=== PATIENT | female | born 1940 | race Caucasian/White ===

== ENCOUNTER 2017-12-22 09:52 | Outpatient (CLI) | payer MEDICARE ==
--- NOTE | 2017-12-22 15:01 | MRI Report ---
Reason: IMPINGEMENT SYNDROME OF RIGHT SHOULDER Procedure Date: 12/22/2017 Accession Number: [id number] / [id number] Procedure: MRI - Shoulder RT W/O CPT Code: FULL RESULT: EXAM: RIGHT SHOULDER MRI WITHOUT CONTRAST. EXAM DATE: 12/22/2017 11:20 AM. CLINICAL HISTORY: Impingement syndrome of right shoulder. COMPARISON: None. TECHNIQUE: Multiplanar, multisequence T1-weighted and fluid-sensitive sequences of the shoulder without contrast. Other: None. FINDINGS: Acromioclavicular Region: The acromion is type II. 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 The coracoacromial and coracoclavicular ligaments are intact. There is a small amount of bursal fluid present. Glenohumeral Region: No subluxation. Moderate-sized joint effusion. Several loose bodies also noted, at least 2 in the axillary pouch (series 701 image 17, at least 2 also seen in the biceps tendon sheath, series 501 image 8). Largest in the bicipital tendon sheath is about a centimeter. 2 smaller about 5 mm loose bodies in the axillary pouch. 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 The glenohumeral ligaments and joint capsule are unremarkable. Bone Marrow: No fracture, marrow edema or bone lesions. Labrum: Hamilton variant anterior labrum. No tears. Musculature/Rotator Cuff: Thickening and increased T2 signal at the subscapularis and supraspinatus. Infraspinatus and teres minor appear normal. No proximal muscular edema or fatty atrophy of the muscles of the rotator cuff. Biceps Tendon: The long head of the biceps tendon and biceps barry are intact. Moderate amount of fluid in the tendon sheath. Other: The subcutaneous tissues are unremarkable. IMPRESSION: 1. Type II unipartite undersurface osseous acromion shape. 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 Small amount of bursal fluid is present. 2. Moderate-sized joint effusion. Numerous loose bodies noted as described. Multifocal regions of grade II-III chondromalacia on both sides of the glenohumeral joint. 3. Marilu variant anterior labrum, no tears. 4. Significant tendinitis of the subscapularis and supraspinatus portions of the cuff without partial or full-thickness tears. 5. Moderate amount of fluid in the bicipital tendon sheath, tendon appears unremarkable. At least 2 loose bodies in the tendon sheath. [facility] MUSCULOSKELETAL RADIOLOGY SECTION
== END 2017-12-22 09:53 | disposition home or self-care (01) ==
LOC: DI 09:52
PROVIDERS: ATTEND Orthopaedic Surgery
DX: M19.011 Primary osteoarthritis, right shoulder (principal); M24.011 Loose body in right shoulder; M25.411 Effusion, right shoulder; M75.91 Shoulder lesion, unspecified, right shoulder; M67.813 Other specified disorders of tendon, right shoulder

== ENCOUNTER 2018-10-08 12:13 | Emergency (ER) | payer MEDICARE, OTHER ==
[2018-10-08 12:33] VITALS: BP 140/85
--- NOTE | 2018-10-08 12:58 | ED Physician Documentation ---
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 : None HEENT: Chronic vision loss, Other Psych: None Musculoskeletal: None Derm: None - Past Surgical History Past Surgical History: Yes Ortho: Spine surgery, Other HEENT: Tonsil/Adenoidectomy - Present Medications Home Medications: Ambulatory Orders Medication Instructions Recorded Confirmed Cetirizine HCl [Zyrtec] 10 mg PO DAILY 07/19/14 07/08/18 Cholecalciferol (Vitamin D3) 1 tab PO DAILY 06/25/16 07/08/18 [Vitajoy Daily D] Calcium Carbonate [Calcium] 1,200 mg PO DAILY 07/08/18 07/08/18 Cholecalciferol (Vitamin D3) 2,000 unit PO DAILY 07/08/18 07/08/18 [Vitamin D] - Allergies Allergies/Adverse Reactions: Allergies Allergy/AdvReac Type Severity Reaction Status Date / Time shellfish derived Allergy Anaphylaxis Verified 10/08/18 12:33 - Social History Does the pt smoke?: No Smoking Status: Never smoker Does the pt drink ETOH?: Yes Does the pt have substance abuse?: No - Immunizations Immunizations are current?: Yes - POLST Patient has POLST: No Results - Vitals Vitals: Vital Signs - 24 hr 10/08/18 12:29 Temperature 36.1 C L Heart Rate 62 Respiratory 21 Rate Blood Pressure 140/85 H O2 Saturation 99 Oxygen O2 Source Room air
[2018-10-08] MEDS ORDERED: CHERRY SYRUP 10 ML UDC PO ONE (13:07)
[2018-10-08] MEDS ORDERED: DOXEPIN 10 MG CAPSULE PO STA (13:07)
[2018-10-08] MEDS ORDERED: DEXAMETHASONE 10 MG/ML VIAL PO STA (13:07)
--- NOTE | 2018-10-08 13:09 | ED Physician Documentation ---
PD HPI LOWER EXT INJURY - Stated complaint Stated Complaint: L LEG SWOLLEN - Chief complaint Chief Complaint: Wound - History obtained from History obtained from: Patient - History of Present Illness PD HPI LOW EXT INJURY LOCATION: Left (About a week ago she was stung twice on the right leg by yellow jackets, there was a much of a reaction again there and. 2 days ago she was stung on the left leg and progressively over the next day or so developed significant swelling of the entirety of the left leg. She noted very subtle numbness of both sides of the chin today. 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 : None HEENT: Chronic vision loss, Other Psych: None Musculoskeletal: None Derm: None - Past Surgical History Past Surgical History: Yes Ortho: Spine surgery, Other HEENT: Tonsil/Adenoidectomy - Present Medications Home Medications: Ambulatory Orders Medication Instructions Recorded Confirmed Cetirizine HCl [Zyrtec] 10 mg PO DAILY 07/19/14 07/08/18 Cholecalciferol (Vitamin D3) 1 tab PO DAILY 06/25/16 07/08/18 [Vitajoy Daily D] Calcium Carbonate [Calcium] 1,200 mg PO DAILY 07/08/18 07/08/18 Cholecalciferol (Vitamin D3) 2,000 unit PO DAILY 07/08/18 07/08/18 [Vitamin D] RX: Doxepin [SINEquan] 10 mg PO TID PRN #30 capsule 10/08/18 RX: predniSONE [Deltasone] 60 mg PO DAILY 5 Days #15 tablet 10/08/18 - Allergies Allergies/Adverse Reactions: Allergies Allergy/AdvReac Type Severity Reaction Status Date / Time shellfish derived Allergy Anaphylaxis Verified 10/08/18 12:33 - Social History Does the pt smoke?: No Smoking Status: Never smoker Does the pt drink ETOH?: Yes Does the pt have substance abuse?: No - Immunizations Immunizations are current?: Yes - POLST Patient has POLST: No PD ED PE NORMAL - Vitals Vital signs reviewed: Yes - General General: Alert and oriented X 3, No acute distress - Extremities Extremities: Other (The entirety of the left leg is warm red and swollen, mostly on the medial side. She has full range of motion.) - Neuro Neuro: Alert and oriented X 3, Normal speech Results - Vitals Vitals: Vital Signs - 24 hr 10/08/18 12:29 Temperature 36.1 C L Heart Rate 62 Respiratory 21 Rate Blood Pressure 140/85 H O2 Saturation 99 Oxygen O2 Source Room air PD MEDICAL DECISION MAKING - ED course ED course: 77-year-old with severe localized allergic reaction to a wasp sting, no evidence of infection. DVT is considered but ultrasound for same is negative. Departure - Departure Disposition: 01 Home, Self Care Clinical Impression: Swelling of left lower extremity, Sting from hornet, wasp, or bee Condition: Good Instructions: ED Bite Sting Insect Local Allergic React Prescriptions: RX: Doxepin [SINEquan] 10 mg PO TID PRN #30 capsule PRN Reason: Itching RX: predniSONE [Deltasone] 60 mg PO DAILY 5 Days #15 tablet Comments: You were seen today for a significant reaction to wasp being on the left leg. I anticipate this will get better over the next few days. The medications will help. The doxepin might make you slightly sleepy, do not Drive or operate machinery after taking it. Return for new or worsening symptoms. Your blood pressure was elevated today on check into the emergency department. This does not mean that you have hypertension, it is a common phenomenon to come to the emergency department and have elevated blood pressure. I recommend that you see your primary care physician within the week to have it rechecked when you are feeling better. Discharge Date/Time: 10/08/18 16:08
--- NOTE | 2018-10-08 15:59 | Ultrasound Report ---
Reason: LLE swelling Procedure Date: 10/08/2018 Accession Number: [id number] / [id number] Procedure: US - Duplex Ext Veins Left CPT Code: FULL RESULT: EXAM: LEFT LOWER EXTREMITY VENOUS ULTRASOUND EXAM DATE: 10/08/2018 03:38 PM. CLINICAL HISTORY: LLE swelling. COMPARISON: None. TECHNIQUE: Real-time sonographic vascular imaging was performed by the food porter through the lower extremity utilizing both color-flow and Doppler spectral analysis. Multiple artists' booking representative static images were saved for review. FINDINGS: Common Femoral Vein (CFV): Normal. CFV-GSV Junction: Normal. Profunda Femoral Vein (PFV): Normal. Femoral Vein (FV) Prox: Normal. Femoral Vein (FV) Mid: Normal. Femoral Vein (FV) Dist: Normal. Popliteal Vein: Normal. Posterior Tibial Veins: Normal. Peroneal Veins: Normal. Contralateral Side CFV: Normal. Other: None. IMPRESSION: No evidence for deep venous thrombosis. [facility]
== END 2018-10-08 16:08 | disposition home or self-care (01) ==
LOC: ED 12:13
DX: T63.461A Toxic effect of venom of wasps, accidental (unintentional), initial encounter (principal); M79.89 Other specified soft tissue disorders; R03.0 Elevated blood-pressure reading, without diagnosis of hypertension
CPT/HCPCS: 93971; 99283; 99284; A9270

== ENCOUNTER 2019-07-06 14:14 | Outpatient (CLI) | payer MEDICARE, OTHER ==
--- NOTE | 2019-07-07 13:57 | XRAY Report ---
Reason: LOW BACK PAIN Procedure Date: 07/06/2019 Accession Number: [id number] / [id number] Procedure: XR - Lumbar Spine 2 View CPT Code: Final Report FULL RESULT: EXAM: LUMBOSACRAL SPINE RADIOGRAPHY EXAM DATE: 07/06/2019 02:50 PM. CLINICAL HISTORY: LOW BACK PAIN. COMPARISONS: None. TECHNIQUE: 2 views. FINDINGS: Alignment: Normal. No spondylolisthesis or scoliosis. Bones: Five lgn-orx-lrhbhwe lumbar vertebral bodies are present. Mild compression deformity of the L3 vertebral body with approximately 5 mm of vertebral body height loss. Disks: Severe degenerative disk disease at L3-L4 and L4-L5. Mild to moderate degenerative changes at L2-L3 and L5-S1. Facets: No degenerative changes. Sacroiliac Joints: Unremarkable. Soft Tissues: Normal. The visualized bowel gas pattern is normal. IMPRESSION: 1. Mild compression deformity of the L3 vertebral body with approximately 5 mm of vertebral body height loss. 2. Severe degenerative disk disease at L3-L4 and L4-L5. Mild to moderate degenerative changes at L2-L3 and L5-S1. [facility]
== END 2019-07-06 14:15 | disposition home or self-care (01) ==
LOC: DI 14:14
PROVIDERS: ATTEND Physician Assistant
DX: M51.36 Other intervertebral disc degeneration, lumbar region (principal); M51.86 Other intervertebral disc disorders, lumbar region; M47.816 Spondylosis without myelopathy or radiculopathy, lumbar region; M47.817 Spondylosis without myelopathy or radiculopathy, lumbosacral region
CPT/HCPCS: 72100

== ENCOUNTER 2020-11-06 13:00 | Outpatient (CLI) | payer MEDICARE, OTHER | END 2020-11-06 23:59 | disposition home or self-care (01) | LOC: LAB.S 13:00 | PROVIDERS: ATTEND Nurse Practitioner | DX: R10.9 Unspecified abdominal pain (principal) | CPT/HCPCS: 87086 ==

== ENCOUNTER 2020-11-06 13:58 | Emergency (ER) | payer MEDICARE, OTHER ==
[2020-11-06 14:22] LABS: BASOPHILS % (AUTO) 0.1 %; EOSINOPHILS % (AUTO) 0.4 %; HCT - HEMATOCRIT 37.5 % (37.0-47.0); HGB - HEMOGLOBIN 12.6 g/dL (12.0-16.0); LYMPHOCYTES # (AUTO) 0.8 10^3/uL (1.5-3.5); MEAN CORPUSCULAR HEMOGLOBIN 31.5 pg (27.0-31.0); MEAN CORPUSCULAR HGB CONC 33.6 g/dL (32.0-36.0); MEAN CORPUSCULAR VOLUME 93.8 fL (81.0-99.0); MEAN PLATELET VOLUME 8.4 fL (7.9-10.8); MONOCYTES # (AUTO) 0.4 10^3/uL (0.0-1.0); MONOCYTES % (AUTO) 5.3 %; NEUTROPHILS # (AUTO) 5.6 10^3/uL (1.5-6.6); NEUTROPHILS % (AUTO) 81.9 %; PLT - PLATELET COUNT 241 10^3/uL (130-450); RED CELL DISTRIBUTION WIDTH 12.2 % (12.0-15.0); WHITE BLOOD COUNT 6.8 x10^3/uL (4.8-10.8)
[2020-11-06 14:37] LABS: ALBUMIN 4.9 g/dL (3.2-5.5); ALBUMIN/GLOBULIN RATIO 2.6 (1.0-2.2); CALCIUM 8.9 mg/dL (8.5-10.3); CREATININE 0.6 mg/dL (0.4-1.0); POTASSIUM 3.9 mmol/L (3.5-5.0); TOTAL PROTEIN 6.8 g/dL (6.7-8.2)
--- NOTE | 2020-11-06 15:17 | ED Physician Documentation ---
PD HPI ABD PAIN - Stated complaint Stated Complaint: LOWER LT ABD PX/LT SIDE BACK PX - Chief complaint Chief Complaint: Abd Pain - History obtained from History obtained from: Patient - Additional information Additional information: LLQ pain x 1 day, intermittent. Sharp, assoc with bloating, Radiated to back, better with standing, worse with sitting. No urinary complaints. BMs nl. 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 : None HEENT: Chronic vision loss, Other Psych: None Musculoskeletal: None Derm: None - Past Surgical History Past Surgical History: Yes Ortho: Spine surgery, Other HEENT: Tonsil/Adenoidectomy - Present Medications Home Medications: Ambulatory Orders Medication Instructions Recorded Confirmed Cetirizine HCl [Zyrtec] 10 mg PO DAILY 07/19/14 02/04/19 Cholecalciferol (Vitamin D3) 1 tab PO DAILY 06/25/16 02/04/19 [Vitajoy Daily D] Calcium Carbonate [Calcium] 1,200 mg PO DAILY 07/08/18 02/04/19 Cholecalciferol (Vitamin D3) 2,000 unit PO DAILY 07/08/18 02/04/19 [Vitamin D] Doxepin [SINEquan] 10 mg PO TID PRN #30 capsule 10/08/18 02/04/19 - Allergies Allergies/Adverse Reactions: Allergies Allergy/AdvReac Type Severity Reaction Status Date / Time hornet venom Allergy Hives Verified 11/06/20 14:10 shellfish derived Allergy Anaphylaxis Verified 02/04/19 09:37 - Social History Does the pt smoke?: No Smoking Status: Never smoker Does the pt drink ETOH?: Yes Does the pt have substance abuse?: No - Immunizations Immunizations are current?: Yes - POLST Patient has POLST: No PD ED PE NORMAL - Vitals Vital signs reviewed: Yes - General General: Alert and oriented X 3, No acute distress - Cardiac Cardiac: RRR, No murmur - Respiratory Respiratory: No respiratory distress, Clear bilaterally - Abdomen Abdomen: Normal bowel sounds, Soft, Other (Mild LLQ TTP, no CVAT) - Back Back: No CVA TTP, No spinal TTP - Neuro Neuro: Alert and oriented X 3, Normal speech - Psych Psych: Normal mood, Normal affect Results - Vitals Vitals: Vital Signs - 24 hr 11/06/20 11/06/20 11/06/20 14:04 15:10 15:48 Temperature 36.6 C 36.4 C L 36.0 C L Heart Rate 66 68 63 Respiratory 16 18 24 Rate Blood Pressure 145/98 H 131/113 H O2 Saturation 98 99 100 11/06/20 11/06/20 17:41 19:57 Temperature 36.4 C L Heart Rate 63 64 Respiratory 22 20 Rate Blood Pressure 153/99 H 136/87 H O2 Saturation 96 100 Oxygen O2 Source Room air - Labs Labs: Laboratory Tests 11/06/20 11/06/20 11/06/20 14:18 14:18 15:13 WBC 6.8 RBC 4.00 L Hgb 12.6 Hct 37.5 MCV 93.8 MCH 31.5 H MCHC 33.6 RDW 12.2 Plt Count 241 MPV 8.4 Neut # (Auto) 5.6 Lymph # (Auto) 0.8 L [place] # (Auto) 0.4 Eos # (Auto) 0.0 Baso # (Auto) 0.0 Absolute Nucleated RBC 0.00 Nucleated RBC % 0.0 Sodium 128 L Potassium 3.9 Chloride 93 L Carbon Dioxide 26 Anion Gap 9.0 BUN 13 Creatinine 0.6 Estimated GFR (MDRD) 96 Glucose 104 H Calcium 8.9 Total Bilirubin 1.0 AST 21 ALT 18 Alkaline Phosphatase 36 L Total Protein 6.8 Albumin 4.9 Globulin 1.9 L Albumin/Globulin Ratio 2.6 H Lipase 27 Urine Color YELLOW Urine Clarity CLOUDY Urine pH 7.[address] 1.015 Urine Protein NEGATIVE Urine Glucose (UA) NEGATIVE Urine Ketones TRACE Urine Occult Blood NEGATIVE Urine Nitrite NEGATIVE Urine Bilirubin NEGATIVE Urine Urobilinogen 0.2 (NORMAL) Ur Leukocyte Esterase NEGATIVE Urine RBC 0-5 Urine WBC 0-3 Ur Squamous Epith Cells RARE Squamous Amorphous Sediment Marked Urine Bacteria Rare Ur Microscopic Review INDICATED Urine Culture Comments NOT INDICATED - Rads (name of study) Pelvic ultrasound demonstrates large septated cystic structure in the left ovary Radiology: EMP read contemporaneously (CT KUB demonstrates dilated urinary bladder with a left adnexal mass, mild constipation, liver cysts) PD MEDICAL DECISION MAKING - ED course ED course: 79-year-old woman presents with left-sided abdominal pain, most consistent with renal colic. Labs are relatively unremarkable, she went over to CT which demonstrated a left adnexal mass, also, not commented on the radiologist read, very large bladder. She was able to urinate after the CT, about 700 mL out but still had a postvoid residual of 469 mL on bladder scan. Ultrasound was ordered to better evaluate the left adnexal mass. My suspicion is the left adnexal mass is causing urinary retention which is actually what made her symptomatic today. She declined catheterization. Pelvic ultrasound done and she was given a CD of the results as [place]. Departure - Departure Disposition: 01 Home, Self Care Clinical Impression: Urinary retention, Ovarian mass Abdominal pain Qualifiers: Abdominal location: unspecified location Qualified Code(s): R10.9 - Unspecified abdominal pain Condition: Good Record reviewed to determine appropriate education?: Yes Comments: As discussed, today you were found to have likely pain due to urinary retention that is probably related to a cystic structure related to the left ovary measuring 6.4 x 4.4 x 5.6 cm in size. There is no solid component but it is septated and complicated. You absolutely need to follow-up with a industrial maintenance mechanic as soon as possible, potentially for pelvic MRI versus exploratory surgery versus what ever else they think is appropriate. Return for new or worsening symptoms or if you cannot urinate at all. Discharge Date/Time: 11/06/20 19:57
[2020-11-06 15:22] LABS: BILIRUBIN,URINE NEGATIVE (NEGATIVE); GLUCOSE, URINE (UA) NEGATIVE (NEGATIVE); KETONES,URINE (UA) TRACE mg/dL (NEGATIVE); LEUKOCYTE ESTERASE, URINE NEGATIVE (NEGATIVE); NITRITE,URINE NEGATIVE (NEGATIVE); OCCULT BLOOD,URINE NEGATIVE (NEGATIVE); PH,URINE 7.5 PH (5.0-7.5); PROTEIN,URINE NEGATIVE (NEGATIVE); UROBILINOGEN,URINE 0.2 (NORMAL) E.U./dL (NORMAL)
[2020-11-06 15:26] LABS: CLARITY,URINE CLOUDY (CLEAR)
[2020-11-06] MEDS ORDERED: KETOROLAC 30 MG/ML VIAL IVP STA (15:29)
[2020-11-06 15:30] LABS: AMORPHOUS SEDIMENT,UR Marked /LPF; BACTERIA,URINE Rare /HPF (None Seen); RBC,URINE 0-5 /HPF (0-5); SQUAMOUS EPITHELIAL CELL,UR RARE Squamous (<= Few); WBC,URINE 0-3 /HPF (0-5)
[2020-11-06] MEDS ORDERED: IOVERSOL 320 100 ML VIAL IVP ONE ×2 (16:26→20:43)
--- NOTE | 2020-11-06 16:52 | CT Report ---
PROCEDURE: Abdomen/Pelvis W INDICATIONS: IV only, abd pain CONTRAST: IV CONTRAST: Optiray 320 ml: 100 PO CONTRAST: *NO PO CONTRAST TECHNIQUE: After the administration of IV contrast, 5 mm thick sections acquired from the diaphragms to the symp hysis. 5 mm thick coronal and sagittal reformats were acquired. For radiation dose reduction, the f ollowing was used: automated exposure control, adjustment of mA and/or kV according to patient size. COMPARISON: None. FINDINGS: Image quality: Excellent. ABDOMEN: Lung bases: Reticular thickening at periphery of bilateral lung bases are seen. Bibasilar atelectasis is also seen. Heart size is enlarged, no pericardial effusion. Solid organs: There is hepatomegaly. 3 well-circumscribed hypodense areas are seen scattered in right and left hepatic lobe measures up to 1.9 x 1.7 cm in size in anterior segment of right hepatic lobe, 1.8 x 1.8 cm in size in inferior left hepatic lobe lateral segment, and 9 mm in size in posterior se gment of inferior right hepatic lobe. Gallbladder is within normal limits. Biliary system is non dil ated. Spleen is normal in size and enhancement. Pancreas enhances normally. No adrenal nodules. Ki dneys demonstrate normal size and enhancement, without hydronephrosis. Peritoneum and bowel: There is no bowel obstruction. Fecal stasis throughout the colon is seen. No ga stric or small bowel wall thickening. No gross colonic wall thickening. No mesenteric fat stranding. No gross free fluid or free air. Nodes and vessels: No retroperitoneal or mesenteric adenopathy by size criteria. Aorta and inferior vena cava are normal in size. Miscellaneous: No ventral hernias. PELVIS: Genitourinary: Bladder wall thickness is normal. Lobulated cystic structure in left adnexa is seen and measures up to 6.8 x 4.6 x 5.1 cm in size. Uterus and right adnexa show no gross abnormality. Miscellaneous: No inguinal hernias or adenopathy. Bones: No suspicious bony lesions. No vertebral body compression fractures. IMPRESSION: 1. Mild constipation. No abnormal bowel wall thickening. No free fluid of free air. No bowel obstruct ion. 2. Lobulated cystic structure in left adnexa which may represent left ovarian cyst versus cystic neop lasm. ENAMELER correlation is recommended. 3. At least 3 fairly well-circumscribed hypodense structure is seen scattered in liver parenchyma as described above and may represent hepatic cysts. Reviewed by: Rene Julian MD on 11/06/2020 4:51 PM PDT Approved by: Rene Julian MD on 11/06/2020 4:51 PM PDT Station ID: [id number]
--- NOTE | 2020-11-06 19:18 | Ultrasound Report ---
PROCEDURE: Pelvic Complete INDICATIONS: L ADNEXAL MASS SEEN ON CT TECHNIQUE: Real-time transabdominal scanning was performed of the pelvic organs, with image documentation. COMPARISON: CT of abdomen and pelvis from the same day FINDINGS: Uterus: Uterus is normal in size at 7.4 x 2.4 x 3.6 cm. Endometrium measures 2 mm in combined thick ness. No gross endometrial mass or fluid. Coarsely heterogeneous myometrial echotexture is seen. No d iscrete uterine fibroid. Ovaries: Right ovary is not visualized. No gross right adnexal mass is seen. Left ovary measures 7.3 x 4.5 x 6.5 cm in size. A large cystic structure with internal septation is noted in left ovary robbin ures in. 6.4 x 4.4 x 5.6 cm in size. No definite internal vascularity is seen. No internal solid comp onent is noted. Other: No free pelvic fluid. IMPRESSION: 1. Large septated cystic structure in left ovary as described above without internal vascularity or d efinite solid component. Sonographic and NAVAL ARCHITECT follow-up is recommended. 2. No gross abnormality is seen in uterus or endometrium. Right ovary is not visualized. No gross abn ormality is seen in right adnexa. Reviewed by: Rene Julian MD on 11/06/2020 7:17 PM PDT Approved by: Rene Julian MD on 11/06/2020 7:17 PM PDT Station ID: [id number]
[2020-11-06 19:57] VITALS: BP 136/87
== END 2020-11-06 19:57 | disposition home or self-care (01) ==
LOC: ED 13:58
DX: R10.32 Left lower quadrant pain (principal); R33.9 Retention of urine, unspecified; N83.202 Unspecified ovarian cyst, left side
CPT/HCPCS: 36415; 51798; 74177; 76856; 80053; 81001; 83690; 85025; 96374; 99284; Q9967; 81003; 87086

== ENCOUNTER 2021-05-31 07:48 | Outpatient (CLI) | payer MEDICARE, OTHER | END 2021-05-31 07:49 | disposition critical access hospital (66) | LOC: EMS 07:48 | DX: R55 Syncope and collapse (principal); R42 Dizziness and giddiness; R11.0 Nausea; R30.9 Painful micturition, unspecified; R00.1 Bradycardia, unspecified | CPT/HCPCS: A0425; A0427 ==

== ENCOUNTER 2021-05-31 08:20 | Emergency (ER) | payer MEDICARE, OTHER ==
--- NOTE | 2021-05-31 08:37 | ED Physician Documentation ---
PD HPI SYNCOPE - Stated complaint Stated Complaint: SYNCOPE - History obtained from History obtained from: Patient, EMS - History of Present Illness Witnessed: Unwitnessed Timing - onset: How many minutes ago (45), Today Duration: Seconds Preceding symptoms: Nausea / vomiting (nauseated without vomiting), Light headed, Generalized weakness. No: Headache, Chest pain, Dyspnea Associated symptoms: No: Chest pain, Palpitations, Dyspnea Contributing factors: Just stood up, Other (no leg edema/pain. Traveled from [place] 2 weeks ago without incident.). No: Recent med change, Decreased PO intake, Noxious stimulae, Emotional upset Injury occurred: No: Head injury, Neck injury Similar symptoms before: Has not had sx before Recently seen: Not recently seen Review of Systems Constitutional: denies: Fever, Chills Nose: denies: Rhinorrhea / runny nose, Congestion Throat: denies: Sore throat Cardiac: denies: Chest pain / pressure, Palpitations, Pedal edema, Calf pain Respiratory: denies: Dyspnea, Cough GI: denies: Abdominal Pain, Vomiting, Bloody / black stool Neurologic: denies: Focal weakness, Numbness, Altered mental status, Headache PD PAST MEDICAL HISTORY - Past Medical History Cardiovascular: None Respiratory: None Endocrine/Autoimmune: None GI: None 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 : None HEENT: Chronic vision loss, Other Psych: None Musculoskeletal: None Derm: None - Past Surgical History Past Surgical History: Yes Ortho: Spine surgery, Other HEENT: Tonsil/Adenoidectomy - Present Medications Home Medications: Ambulatory Orders Medication Instructions Recorded Confirmed Cetirizine HCl [Zyrtec] 10 mg PO DAILY 07/19/14 02/04/19 Cholecalciferol (Vitamin D3) 1 tab PO DAILY 06/25/16 02/04/19 [Vitajoy Daily D] Calcium Carbonate [Calcium] 1,200 mg PO DAILY 07/08/18 02/04/19 Cholecalciferol (Vitamin D3) 2,000 unit PO DAILY 07/08/18 02/04/19 [Vitamin D] Doxepin [SINEquan] 10 mg PO TID PRN #30 capsule 10/08/18 02/04/19 - Allergies Allergies/Adverse Reactions: Allergies Allergy/AdvReac Type Severity Reaction Status Date / Time hornet venom Allergy Hives Verified 11/06/20 14:10 shellfish derived Allergy Anaphylaxis Verified 02/04/19 09:37 - Social History Does the pt smoke?: No Smoking Status: Never smoker Does the pt drink ETOH?: Yes Does the pt have substance abuse?: No - Immunizations Immunizations are current?: Yes - POLST Patient has POLST: No PD ED PE NORMAL - Vitals Vital signs reviewed: Yes - General General: Alert and oriented X 3, No acute distress, Well developed/nourished - HEENT HEENT: Moist mucous membranes, Pharynx benign - Neck Neck: Supple, no meningeal sign, No adenopathy - Cardiac Cardiac: RRR, No murmur - Respiratory Respiratory: No respiratory distress, Clear bilaterally - Abdomen Abdomen: Normal bowel sounds, Soft, Non tender, Non distended - Female Female : Deferred - Rectal Rectal: Deferred - Back Back: No CVA TTP - Derm Derm: Normal color, Warm and dry - Extremities Extremities: No tenderness to palpate, No edema, No calf tenderness / cord - Neuro Neuro: Alert and oriented X 3, No motor deficit, Normal speech Results - Vitals Vitals: Vital Signs - 24 hr 05/31/21 05/31/21 05/31/21 08:39 11:00 12:39 Temperature 36.5 C Heart Rate 59 L 66 Heart Rate [ 63 Sitting] Heart Rate [ 71 Standing] Heart Rate [ 60 Supine] Respiratory 20 18 Rate Blood Pressure 121/87 H 113/83 H Blood Pressure 148/100 H [Sitting] Blood Pressure 154/106 H [Standing] Blood Pressure 131/107 H [Supine] O2 Saturation 100 95 Oxygen O2 Source Room air - EKG (time done) 08:48 Rate: Rate (enter#) (60) Rhythm: NSR [place]: Normal Intervals: Normal DC QRS: Normal Ischemia: Normal ST segments, T wave inversion (laterally). No: ST elevation c/w ischemia, ST depression Compare to prior EKG: Old EKG unavailable - Labs Labs: Laboratory Tests 05/31/21 05/31/21 05/31/21 08:55 08:55 08:55 WBC 6.3 RBC 4.14 L Hgb 13.2 Hct 38.4 MCV 92.8 MCH 31.9 H MCHC 34.4 RDW 12.3 Plt Count 260 MPV 8.6 Neut # (Auto) 4.9 Lymph # (Auto) 0.8 L Liberty # (Auto) 0.4 Eos # (Auto) 0.1 Baso # (Auto) 0.0 Absolute Nucleated RBC 0.00 Nucleated RBC % 0.0 D-Dimer < 200.0 L Sodium 136 Potassium 4.4 Chloride 102 Carbon Dioxide 26 Anion Gap 8.0 BUN 16 Creatinine 0.6 Estimated GFR (MDRD) 96 Glucose 104 H Calcium 8.6 Magnesium 2.0 Total Bilirubin 0.7 AST 20 ALT 19 Alkaline Phosphatase 31 L Troponin I High Sens B-Natriuretic Peptide Total Protein 6.2 L Albumin 4.1 Globulin 2.1 Albumin/Globulin Ratio 2.0 Lipase 34 05/31/21 05/31/21 05/31/21 08:55 08:55 10:09 WBC RBC Hgb Hct MCV MCH MCHC RDW Plt Count MPV Neut # (Auto) Lymph # (Auto) [place] # (Auto) Eos # (Auto) Baso # (Auto) Absolute Nucleated RBC Nucleated RBC % D-Dimer Sodium Potassium Chloride Carbon Dioxide Anion Gap BUN Creatinine Estimated GFR (MDRD) Glucose Calcium Magnesium Total Bilirubin AST ALT Alkaline Phosphatase Troponin I High Sens 7.9 8.1 B-Natriuretic Peptide 109 H Total Protein Albumin Globulin Albumin/Globulin Ratio Lipase - Rads (name of study) chest xray Radiology: Prelim report reviewed (no heart failure nor infiltrates. Apparent mass right upper lobe. Recommend CT. ), See rad report CT chest with contrast Radiology: Prelim report reviewed (normal. apparent mass on CXR must have been summation artifact effect. ), See rad report PD MEDICAL DECISION MAKING - ED course Complexity details: considered differential, d/w patient Departure - Departure Disposition: 01 Home, Self Care Clinical Impression: Postural hypotension Syncope Qualifiers: Syncope type: vasovagal syncope Qualified Code(s): R55 - Syncope and collapse Condition: Stable Record reviewed to determine appropriate education?: Yes Instructions: ED Hypotension Orthostatic Comments: Stay well-hydrated. Stop your blood pressure medicine. Follow-up with your primary care next week. Most likely do not need to be on your blood pressure medicine still. No other acute abnormality found today. Your testing is negative for heart failure, heart attack, blood clots, anemia, hypoglycemia or other more serious causes. Your chest x-ray had showed a possible small mass in the CT scan was suggested. The CT scan is more definitive and does not show any lung masses or abnormalities. Return to the ER or follow-up with your primary care if recurrent or persistent episodes. Discharge Date/Time: 05/31/21 14:04
[2021-05-31] MEDS: SODIUM CHLORIDE 0.9% 1,000 ML IV STA (08:54)
[2021-05-31 09:02] LABS: BASOPHILS % (AUTO) 0.3 %; EOSINOPHILS # (AUTO) 0.1 10^3/uL (0.0-0.7); EOSINOPHILS % (AUTO) 1.3 %; HCT - HEMATOCRIT 38.4 % (37.0-47.0); HGB - HEMOGLOBIN 13.2 g/dL (12.0-16.0); LYMPHOCYTES # (AUTO) 0.8 10^3/uL (1.5-3.5); LYMPHOCYTES % (AUTO) 13.2 %; MEAN CORPUSCULAR HEMOGLOBIN 31.9 pg (27.0-31.0); MEAN CORPUSCULAR HGB CONC 34.4 g/dL (32.0-36.0); MEAN CORPUSCULAR VOLUME 92.8 fL (81.0-99.0); MEAN PLATELET VOLUME 8.6 fL (7.9-10.8); MONOCYTES # (AUTO) 0.4 10^3/uL (0.0-1.0); MONOCYTES % (AUTO) 6.4 %; NEUTROPHILS # (AUTO) 4.9 10^3/uL (1.5-6.6); NEUTROPHILS % (AUTO) 78.5 %; PLT - PLATELET COUNT 260 10^3/uL (130-450); RED BLOOD COUNT 4.14 10^6/uL (4.20-5.40); RED CELL DISTRIBUTION WIDTH 12.3 % (12.0-15.0); WHITE BLOOD COUNT 6.3 x10^3/uL (4.8-10.8)
--- NOTE | 2021-05-31 09:03 | XRAY Report ---
PROCEDURE: Chest 1 View X-Ray INDICATIONS: Chest Pain TECHNIQUE: One view of the chest was acquired. COMPARISON: None FINDINGS: Surgical changes and devices: None. Lungs and pleura: No pleural effusions or pneumothorax. Lungs are clear. Question possible right u pper lobe pulmonary nodules measuring 1.6 cm and 2.1 cm respectively. Mediastinum: Mediastinal contours appear normal. Heart size is normal. Bones and chest wall: No suspicious bony lesions. Overlying soft tissues appear unremarkable. IMPRESSION: Question right upper lobe lung masses. Recommend CT chest with contrast. Above discussed with CYNTHIA GREGORIO at the time of dictation. Reviewed by: Carlos Enrique Camacho MD on 05/31/2021 9:02 AM PDT Approved by: Carlos Enrique Camacho MD on 05/31/2021 9:02 AM PDT Station ID: [id number]
[2021-05-31 09:34] LABS: ALBUMIN 4.1 g/dL (3.2-5.5); BILIRUBIN,TOTAL 0.7 mg/dL (0.2-1.0); CALCIUM 8.6 mg/dL (8.5-10.3); CREATININE 0.6 mg/dL (0.4-1.0); POTASSIUM 4.4 mmol/L (3.5-5.0); TOTAL PROTEIN 6.2 g/dL (6.7-8.2)
[2021-05-31] MEDS ORDERED: IOVERSOL 320 50 ML VIAL ONE (10:08)
--- NOTE | 2021-05-31 11:23 | CT Report ---
PROCEDURE: CHEST W INDICATIONS: CXR showing mass right upper chest CONTRAST: IV CONTRAST: Optiray 320 ml: 100 PO CONTRAST: *NO PO CONTRAST TECHNIQUE: After the administration of intravenous contrast, 1 mm axial images were acquired from the pulmonary apices through the posterior costophrenic angles. Axial 5 mm soft tissue kernel reconstructions were performed as well as 8 mm axial MIP and coronal and sagittal 5 mm reformations. For radiation dose reduction, the following was used: automated exposure control, adjustment of mA and/or kV according to patient size. COMPARISON: Chest radiograph 05/31/2021. FINDINGS: Image quality: Excellent. Lungs and pleura: No pulmonary mass is seen in the right upper lobe to correspond with the prior rad iographic findings, which are likely artifactual due to superimposition of normal structures. No acut e air space opacities. No pleural effusions or pneumothorax. Central and peripheral airways are pat ent and normal in caliber. 2 mm nodule is seen in the medial lingula (150/4). A cluster of tree-in-bud nodules are seen in the l ateral right upper lobe (142/4). 3 mm nodule seen in the posterior right lower lobe (175/4). Mediastinum: Heart size is normal. No pericardial effusion. No mediastinal or hilar adenopathy by size criteria. Ascending thoracic aorta measures 4.0 cm in diameter at the level of the right pulmona ry artery. The descending thoracic aorta is normal in size. The pulmonary artery is also normal in si ze. Esophagus is normal in caliber. No hiatal hernia. Bones and chest wall: No suspicious bony lesions. No vertebral body compression fractures. No axil orly or supraclavicular adenopathy by size criteria. The thyroid is normal in size. Abdomen: Hypoattenuating circumscribed lesions in the liver most likely cysts. Visualized upper abdom inal solid organs appear normal. Upper abdominal bowel loops are normal in caliber. IMPRESSION: 1.No significant abnormality is seen in the right upper lobe to correspond to the previously seen rad iographic finding, most likely secondary to summation artifact on the prior exam. 2.Focal clustered small tree-in-bud nodules in the lateral right upper lobe are most likely infectiou s or inflammatory in etiology. An additional small pulmonary nodules are most likely benign. 3.Ascending thoracic aorta measures up to 4.0 cm in diameter. Reviewed by: Cristian Madden MD on 05/31/2021 11:21 AM PDT Approved by: Cristian Madden MD on 05/31/2021 11:21 AM PDT Station ID: [id number]
[2021-05-31 12:40] VITALS: BP 131/107
[2021-05-31] MEDS: IOVERSOL 320 50 ML VIAL IVP ONE (14:58)
== END 2021-05-31 14:04 | disposition home or self-care (01) ==
LOC: EDUNIT# → ED 08:20
DX: I95.1 Orthostatic hypotension (principal)
CPT/HCPCS: 36415; 80053; 83690; 83735; 83880; 84484; 85025; 85379; 93005; 99283; 99284

== ENCOUNTER 2022-11-17 07:00 | Outpatient (CLI) | payer MEDICARE, OTHER | END 2022-11-17 23:59 | disposition home or self-care (01) | LOC: LAB.S 07:00 | PROVIDERS: ATTEND Physician Assistant Medical | DX: R30.0 Dysuria (principal) | CPT/HCPCS: 87086 ==

== ENCOUNTER 2022-11-21 08:00 | Outpatient (CLI) | payer MEDICARE, OTHER | END 2022-11-21 23:59 | disposition home or self-care (01) | LOC: LAB.S 08:00 | PROVIDERS: ATTEND Internal Medicine | DX: R30.0 Dysuria (principal) | CPT/HCPCS: 87086 ==

== ENCOUNTER 2022-12-06 08:00 | Outpatient (CLI) | payer MEDICARE, OTHER ==
[2022-12-06 17:56] LABS: BILIRUBIN,URINE NEGATIVE (NEGATIVE); GLUCOSE, URINE (UA) NEGATIVE (NEGATIVE); KETONES,URINE (UA) NEGATIVE (NEGATIVE); LEUKOCYTE ESTERASE, URINE NEGATIVE (NEGATIVE); NITRITE,URINE NEGATIVE (NEGATIVE); OCCULT BLOOD,URINE NEGATIVE (NEGATIVE); PROTEIN,URINE NEGATIVE (NEGATIVE); UROBILINOGEN,URINE 0.2 (NORMAL) E.U./dL (NORMAL)
[2022-12-06 18:11] LABS: CLARITY,URINE CLEAR (CLEAR)
[2022-12-06 18:22] LABS: BACTERIA,URINE Rare /HPF (None Seen); RBC,URINE None Seen /HPF (0-5); SQUAMOUS EPITHELIAL CELL,UR RARE Squamous (<= Few); WBC,URINE 0-3 /HPF (0-5)
[2022-12-06 19:48] LABS: BACTERIAL VAGINOSIS DNA NEGATIVE (NEGATIVE); CANDIDA GLABRATA DNA NEGATIVE (NEGATIVE); CANDIDA GROUP DNA NEGATIVE (NEGATIVE); CANDIDA KRUSEI DNA NEGATIVE (NEGATIVE); TRICHOMONAS VAGINALIS DNA NEGATIVE (NEGATIVE)
== END 2022-12-06 11:59 | disposition home or self-care (01) ==
LOC: LAB.S 08:00
PROVIDERS: ATTEND Physician Assistant Medical
DX: R30.0 Dysuria (principal); N95.2 Postmenopausal atrophic vaginitis
CPT/HCPCS: 81001; 81514; 87086; 87661; 87801

== ENCOUNTER 2023-05-08 17:06 | Outpatient (CLI) | payer MEDICARE, OTHER | END 2023-05-08 17:07 | disposition home or self-care (01) | LOC: LAB.S 17:06 | PROVIDERS: ATTEND Physician Assistant Medical | DX: R07.0 Pain in throat (principal) | CPT/HCPCS: 87070 ==